=== PATIENT | female | born 1985 | race Caucasian/White ===

== ENCOUNTER 2022-11-24 13:45 | Outpatient (RCR) | payer OTHER, SELFPAY ==
--- NOTE | 2022-10-12 13:05 | PT.OIE ---
Current Diagnoses Stress incontinence (female) (male) (10/12/22) Functional urinary incontinence (10/12/22) Visit Care Team Role Provider Type Odette Morales ND Attending Provider Non-Staff Family Provider Primary Care Provider Referring Provider Specialty: Medical Address: [address] [place] [address], [id number] Email: Physical Therapy Initial Evaluation PT-OP-A Visit Information Start: 10/07/22 15:35 Freq: Status: Active Protocol: Document 10/12/22 08:18 AMB (Rec: 10/12/22 08:29 AMB [id number]) Out-Patient Physical Therapy Visit Information Visit Information Visit Type Initial Evaluation Visit Start Time 08:15 Visit Stop Time 09:00 Total Visit Minutes 45 Visit Number 1 PT-OP-B Current Condition Start: 10/07/22 15:35 Freq: Status: Active Protocol: Document 10/12/22 08:18 AMB (Rec: 10/12/22 08:29 AMB [id number]) Current Condition History of Current Condition Onset Date 2016 Current Complaints stress incontinence History of Current Condition '08, '09, '11, and then '17 did pelvic floor physical therapy after the last baby and did well, but symptoms have since returned. Leaking urine with running, jumping, lateral movements. Plays softball and has to play with a pad. All vaginal deliveries , last was fast and thinks had a 2nd degree tear, knows there were stitches. Prior Functional Status Baseline Function- ADL's Independent Baseline Function- Mobility Independent Current Functional Impairments (Reported) Functional Limitations- ADL's limited with exercise PT-OP-C Subjective Start: 10/07/22 15:35 Freq: Status: Active Protocol: Document 10/12/22 08:15 AMB (Rec: 10/15/22 12:46 AMB [id number]) Patient Questionnaires Pelvic Pain and Urgency/Frequency Patient Symptom Scale Pelvic Pain Score 1 PT-OP-I Pelvic Floor Start: 10/07/22 15:35 Freq: Status: Active Protocol: Document 10/12/22 08:54 AMB (Rec: 10/12/22 08:57 AMB [id number]) Pelvic Floor Assessment Urine Leakage Size Small Leakage Cause Exercise Voiding Frequency 8/day Nocturia 0 Urine Pad Type Maxi Pad Bowel Bowel Surgery No Pelvic Clock Pelvic Clock Other no palpable guarding during assessment Prolapse Cystocele Grade 2 Rectocele Grade 1 Perineal Descent Resting Absent Bearing Present SEMG (uV) Baseline 2 Quick Contraction 27 10 Second Contraction 19 Contraction Ability Voluntary Contraction Moderate Voluntary Relaxation Moderate Manual Muscle Testing Left 3 Manual Muscle Testing Right 3 Manual Muscle Testing Anterior 3 Manual Muscle Testing Posterior 4 Muscle Endurance (Seconds) 10 Number of Quick Contractions In 10 4 Seconds Comments Pelvic Floor Comments needs cues to avoid over use of TA PT-OP-T Assessment and Plan Start: 10/07/22 15:35 Freq: Status: Active Protocol: Document 10/12/22 08:15 AMB (Rec: 10/15/22 13:03 AMB [id number]) Physical Therapy Assessment Rehab Potential Rehabilitation Potential Good Evaluation Complexity Number of Personal Factors/Comorbidities 0 Number of Body Systems Impaired 1-2 Clinical Presentation at Evaluation Stable Impairments Impairments Activity Tolerance,Strength Goals Two Impairment HEP Short Term Goal (STG) Elvira will be consistent and independent with a pelvic floor strengthening exercise program. STG Duration 5 weeks Detention Goal (LTG) Elvira will contract her pelvic floor for 10 seconds while move from sit to stand to show an improvement in her pelvic floor strength. LTG Duration 10 weeks One Impairment Continence Short Term Goal (STG) Elvira will perform a lateral lunge without leaking. STG Duration 4 weeks Cane Weigher Goal (LTG) Elvira will sprint for softball without leaking. LTG Duration 10 weeks Assessment Summary Assessment Elvira attends physical therapy with a worsening of continence after previous pelvic floor physical therapy. Her biggest leaks occur while sprinting during softball. She had good strength with her pelvic floor with sEMG and manual assessment, but given her sporting goals will need to improve her strength even more . Physical Therapy Plan Frequency and Duration Frequency of Treatment 1x/Week Duration of treatment (weeks) 10 Plan of Care Start Date 10/12/22 Plan of Care End Date 12/21/22 Therapeutic Interventions Therapeutic Interventions Home Exercise Program,Manual Therapy,Neuromuscular Re- education,Self-Care/Home Management,Therapeutic Activities,Therapeutic Exercises Modalities Biofeedback,Cold Pack/Ice Massage,Electric Stimulation Next Visit Focus/Plan Next Note Type Treatment Note Next Visit Plan sEMG, exercise progression, work on more athletic exercises as that is what pt's biggest issue is
--- NOTE | 2022-10-12 13:05 | PT.OPPOC ---
Physical, Occupational & Speech Therapy At [facility] Current Diagnoses Stress incontinence (female) (male) (10/12/22) Functional urinary incontinence (10/12/22) Visit Care Team Role Provider Type Odette Morales ND Attending Provider Non-Staff Family Provider Primary Care Provider Referring Provider Specialty: Medical Address: [address] [place] [address], [id number] Email: Plan Of Care PT-OP-T Assessment and Plan Start: 10/07/22 15:35 Freq: Status: Active Protocol: Document 10/12/22 08:15 AMB (Rec: 10/15/22 13:03 AMB [id number]) Physical Therapy Assessment Rehab Potential Rehabilitation Potential Good Evaluation Complexity Number of Personal Factors/Comorbidities 0 Number of Body Systems Impaired 1-2 Clinical Presentation at Evaluation Stable Impairments Impairments Activity Tolerance,Strength Goals Two Impairment HEP Short Term Goal (STG) Elvira will be consistent and independent with a pelvic floor strengthening exercise program. STG Duration 5 weeks Emergency Detail Driver Goal (LTG) Elvira will contract her pelvic floor for 10 seconds while move from sit to stand to show an improvement in her pelvic floor strength. LTG Duration 10 weeks One Impairment Continence Short Term Goal (STG) Elvira will perform a lateral lunge without leaking. STG Duration 4 weeks Emergency Detail Driver Goal (LTG) Elvira will sprint for softball without leaking. LTG Duration 10 weeks Assessment Summary Assessment Elvira attends physical therapy with a worsening of continence after previous pelvic floor physical therapy. Her biggest leaks occur while sprinting during softball. She had good strength with her pelvic floor with sEMG and manual assessment, but given her sporting goals will need to improve her strength even more . Physical Therapy Plan Frequency and Duration Frequency of Treatment 1x/Week Duration of treatment (weeks) 10 Plan of Care Start Date 10/12/22 Plan of Care End Date 12/21/22 Therapeutic Interventions Therapeutic Interventions Home Exercise Program,Manual Therapy,Neuromuscular Re- education,Self-Care/Home Management,Therapeutic Activities,Therapeutic Exercises Modalities Biofeedback,Cold Pack/Ice Massage,Electric Stimulation Next Visit Focus/Plan Next Note Type Treatment Note Next Visit Plan sEMG, exercise progression, work on more athletic exercises as that is what pt's biggest issue is Plan of Care Dates Plan of Care Start Date 10/12/22 Plan of Care End Date 12/21/22 Electronically Signed by: Kailyn Heart, PT 10/15/22 2142 If you are in agreement with this Plan of Care, please return a signed and dated copy. I have reviewed this Plan of Care and certify that the skilled therapy services above are required to meet the patient?s needs. Physician Signature Date Printed Name and Credentials Clinical Instructor Signature Printed Name and Credentials
--- NOTE | 2022-10-23 14:25 | PT.OTN ---
Current Diagnoses Stress incontinence (female) (male) (10/23/22) Functional urinary incontinence (10/23/22) Physical Therapy Treatment Note PT-OP-A Visit Information Start: 10/07/22 15:35 Freq: Status: Active Protocol: Document 10/23/22 09:10 AMB (Rec: 10/23/22 09:47 AMB [id number]) Out-Patient Physical Therapy Visit Information Visit Information Visit Type Treatment Note Visit Start Time 09:10 Visit Stop Time 09:45 Total Visit Minutes 35 Visit Number 2 PT-OP-B Current Condition Start: 10/07/22 15:35 Freq: Status: Active Protocol: Document 10/12/22 08:18 AMB (Rec: 10/12/22 08:29 AMB [id number]) Current Condition History of Current Condition Onset Date 2016 Current Complaints stress incontinence History of Current Condition '08, ', ', and then '17 did pelvic floor physical therapy after the last baby and did well, but symptoms have since returned. Leaking urine with running, jumping, lateral movements. Plays softball and has to play with a pad. All vaginal deliveries , last was fast and thinks had a 2nd degree tear, knows there were stitches. Prior Functional Status Baseline Function- ADL's Independent Baseline Function- Mobility Independent Current Functional Impairments (Reported) Functional Limitations- ADL's limited with exercise PT-OP-C Subjective Start: 10/07/22 15:35 Freq: Status: Active Protocol: Document 10/23/22 09:10 AMB (Rec: 10/23/22 09:47 AMB [id number]) OP-PT Subjective Patient Comments Patient Comments Elvira is noticing some difficulty with coughing especially if bladder is especially full. Still noticing more issues with jumping and sprinting. PT-OP-I Pelvic Floor Start: 10/07/22 15:35 Freq: Status: Active Protocol: Document 10/12/22 08:54 AMB (Rec: 10/12/22 08:57 AMB [id number]) Pelvic Floor Assessment Urine Leakage Size Small Leakage Cause Exercise Voiding Frequency 8/day Nocturia 0 Urine Pad Type Maxi Pad Bowel Bowel Surgery No Pelvic Clock Pelvic Clock Other no palpable guarding during assessment Prolapse Cystocele Grade 2 Rectocele Grade 1 Perineal Descent Resting Absent Bearing Present SEMG (uV) Baseline 2 Quick Contraction 27 10 Second Contraction 19 Contraction Ability Voluntary Contraction Moderate Voluntary Relaxation Moderate Manual Muscle Testing Left 3 Manual Muscle Testing Right 3 Manual Muscle Testing Anterior 3 Manual Muscle Testing Posterior 4 Muscle Endurance (Seconds) 10 Number of Quick Contractions In 10 4 Seconds Comments Pelvic Floor Comments needs cues to avoid over use of TA PT-OP-Q Treatments Start: 10/07/22 15:35 Freq: Status: Active Protocol: Document 10/23/22 09:10 AMB (Rec: 10/23/22 09:47 AMB [id number]) Gym Equipment Shuttle Recovery plyos Resistance 25 Reps/Time 2x5 Therapeutic Exercises Sitting Exercises roll out Sitting Exercise Name #3 t band Reps/Minutes 2x10 roll in Reps/Minutes 2x10 Standing Exercises WBOS Reps/Minutes 2x10 Comments cued lift, gentle descent mini lunge Reps/Minutes 2x10 Comments challenging PT-OP-T Assessment and Plan Start: 10/07/22 15:35 Freq: Status: Active Protocol: Document 10/23/22 09:10 AMB (Rec: 10/23/22 09:47 AMB [id number]) Physical Therapy Assessment Goals Two Impairment HEP Short Term Goal (STG) Elvira will be consistent and independent with a pelvic floor strengthening exercise program. STG Duration 5 weeks Senior Living Goal (LTG) Elvira will contract her pelvic floor for 10 seconds while move from sit to stand to show an improvement in her pelvic floor strength. LTG Duration 10 weeks One Impairment Continence Short Term Goal (STG) Elvira will perform a lateral lunge without leaking. STG Duration 4 weeks Correctional Food Service Supervisor Goal (LTG) Elvira will sprint for softball without leaking. LTG Duration 10 weeks Assessment Summary Assessment Elvira was challenged by controlling pelvic floor in standing, especially with movement, given HEP of roll in roll out and sit to stand. Physical Therapy Plan Frequency and Duration Frequency of Treatment 1x/Week Duration of treatment (weeks) 10 Plan of Care Start Date 10/12/22 Plan of Care End Date 12/21/22 Therapeutic Interventions Therapeutic Interventions Home Exercise Program,Manual Therapy,Neuromuscular Re- education,Self-Care/Home Management,Therapeutic Activities,Therapeutic Exercises Modalities Biofeedback,Cold Pack/Ice Massage,Electric Stimulation Next Visit Focus/Plan Next Note Type Treatment Note Next Visit Plan sEMG, exercise progression, work on more athletic exercises as that is what pt's biggest issue is
--- NOTE | 2022-11-03 16:00 | PT.OTN ---
Current Diagnoses Stress incontinence (female) (male) (11/03/22) Functional urinary incontinence (11/03/22) Physical Therapy Treatment Note PT-OP-A Visit Information Start: 10/07/22 15:35 Freq: Status: Active Protocol: Document 11/03/22 13:45 AMB (Rec: 11/03/22 14:30 AMB [id number]) Out-Patient Physical Therapy Visit Information Visit Information Visit Type Treatment Note Visit Start Time 13:45 Visit Stop Time 14:30 Total Visit Minutes 45 Visit Number 3 PT-OP-B Current Condition Start: 10/07/22 15:35 Freq: Status: Active Protocol: Document 10/12/22 08:18 AMB (Rec: 10/12/22 08:29 AMB [id number]) Current Condition History of Current Condition Onset Date 2016 Current Complaints stress incontinence History of Current Condition '08, '09, ', and then '17 did pelvic floor physical therapy after the last baby and did well, but symptoms have since returned. Leaking urine with running, jumping, lateral movements. Plays softball and has to play with a pad. All vaginal deliveries , last was fast and thinks had a 2nd degree tear, knows there were stitches. Prior Functional Status Baseline Function- ADL's Independent Baseline Function- Mobility Independent Current Functional Impairments (Reported) Functional Limitations- ADL's limited with exercise PT-OP-C Subjective Start: 10/07/22 15:35 Freq: Status: Active Protocol: Document 11/03/22 13:45 AMB (Rec: 11/03/22 15:47 AMB [id number]) OP-PT Subjective Patient Comments Patient Comments Pt is feeling like exercises are going well, but was tough to do them over holiday. PT-OP-I Pelvic Floor Start: 10/07/22 15:35 Freq: Status: Active Protocol: Document 10/12/22 08:54 AMB (Rec: 10/12/22 08:57 AMB [id number]) Pelvic Floor Assessment Urine Leakage Size Small Leakage Cause Exercise Voiding Frequency 8/day Nocturia 0 Urine Pad Type Maxi Pad Bowel Bowel Surgery No Pelvic Clock Pelvic Clock Other no palpable guarding during assessment Prolapse Cystocele Grade 2 Rectocele Grade 1 Perineal Descent Resting Absent Bearing Present SEMG (uV) Baseline 2 Quick Contraction 27 10 Second Contraction 19 Contraction Ability Voluntary Contraction Moderate Voluntary Relaxation Moderate Manual Muscle Testing Left 3 Manual Muscle Testing Right 3 Manual Muscle Testing Anterior 3 Manual Muscle Testing Posterior 4 Muscle Endurance (Seconds) 10 Number of Quick Contractions In 10 4 Seconds Comments Pelvic Floor Comments needs cues to avoid over use of TA PT-OP-Q Treatments Start: 10/07/22 15:35 Freq: Status: Active Protocol: Document 11/03/22 13:45 AMB (Rec: 11/03/22 14:30 AMB [id number]) Therapeutic Exercises Sitting Exercises roll out Sitting Exercise Name #3 t band Reps/Minutes 2x10 roll in Reps/Minutes 2x10 Standing Exercises mini squat and lift Standing Exercise Name lifting 10# crate Comments from waist height to chest height with pelvic floor activation WBOS Reps/Minutes 2x10 Comments cued lift, gentle descent mini lunge Standing Exercise Name lateral lunge Reps/Minutes 2x10 Comments with PF, cued breathing PT-OP-T Assessment and Plan Start: 10/07/22 15:35 Freq: Status: Active Protocol: Document 11/03/22 13:45 AMB (Rec: 11/03/22 14:30 AMB [id number]) Physical Therapy Assessment Goals Two Impairment HEP Short Term Goal (STG) Elvira will be consistent and independent with a pelvic floor strengthening exercise program. STG Duration 5 weeks Snf Goal (LTG) Elvira will contract her pelvic floor for 10 seconds while move from sit to stand to show an improvement in her pelvic floor strength. LTG Duration 10 weeks One Impairment Continence Short Term Goal (STG) Elvira will perform a lateral lunge without leaking. STG Duration [address] Sql Programmer Goal (LTG) Elvira will sprint for softball without leaking. LTG Duration 10 weeks Assessment Summary Assessment Pt is progressing with exercises well, would like to revisit with sensor to make sure she is appropriately using pelvic floor muscles. Challenged by more functional exercises. Physical Therapy Plan Frequency and Duration Frequency of Treatment 1x/Week Duration of treatment (weeks) 10 Plan of Care Start Date 10/12/22 Plan of Care End Date 12/21/22 Therapeutic Interventions Therapeutic Interventions Home Exercise Program,Manual Therapy,Neuromuscular Re- education,Self-Care/Home Management,Therapeutic Activities,Therapeutic Exercises Modalities Biofeedback,Cold Pack/Ice Massage,Electric Stimulation Next Visit Focus/Plan Next Note Type Treatment Note Next Visit Plan sEMG, exercise progression, work on more athletic exercises as that is what pt's biggest issue is
--- NOTE | 2022-11-17 15:59 | PT.OTN ---
Current Diagnoses Stress incontinence (female) (male) (11/17/22) Functional urinary incontinence (11/17/22) Physical Therapy Treatment Note PT-OP-A Visit Information Start: 10/07/22 15:35 Freq: Status: Active Protocol: Document 11/17/22 13:50 AMB (Rec: 11/17/22 14:25 AMB [id number]) Out-Patient Physical Therapy Visit Information Visit Information Visit Type Treatment Note Visit Start Time 13:45 Visit Stop Time 14:30 Total Visit Minutes 45 Visit Number 4 PT-OP-B Current Condition Start: 10/07/22 15:35 Freq: Status: Active Protocol: Document 10/12/22 08:18 AMB (Rec: 10/12/22 08:29 AMB [id number]) Current Condition History of Current Condition Onset Date 2016 Current Complaints stress incontinence History of Current Condition '08, ', ', and then 17 did pelvic floor physical therapy after the last baby and did well, but symptoms have since returned. Leaking urine with running, jumping, lateral movements. Plays softball and has to play with a pad. All vaginal deliveries , last was fast and thinks had a 2nd degree tear, knows there were stitches. Prior Functional Status Baseline Function- ADL's Independent Baseline Function- Mobility Independent Current Functional Impairments (Reported) Functional Limitations- ADL's limited with exercise PT-OP-C Subjective Start: 10/07/22 15:35 Freq: Status: Active Protocol: Document 11/17/22 13:50 AMB (Rec: 11/17/22 14:25 AMB [id number]) OP-PT Subjective Patient Comments Patient Comments Pt is feeling better PT-OP-I Pelvic Floor Start: 10/07/22 15:35 Freq: Status: Active Protocol: Document 10/12/22 08:54 AMB (Rec: 10/12/22 08:57 AMB [id number]) Pelvic Floor Assessment Urine Leakage Size Small Leakage Cause Exercise Voiding Frequency 8/day Nocturia 0 Urine Pad Type Maxi Pad Bowel Bowel Surgery No Pelvic Clock Pelvic Clock Other no palpable guarding during assessment Prolapse Cystocele Grade 2 Rectocele Grade 1 Perineal Descent Resting Absent Bearing Present SEMG (uV) Baseline 2 Quick Contraction 27 10 Second Contraction 19 Contraction Ability Voluntary Contraction Moderate Voluntary Relaxation Moderate Manual Muscle Testing Left 3 Manual Muscle Testing Right 3 Manual Muscle Testing Anterior 3 Manual Muscle Testing Posterior 4 Muscle Endurance (Seconds) 10 Number of Quick Contractions In 10 4 Seconds Comments Pelvic Floor Comments needs cues to avoid over use of TA PT-OP-Q Treatments Start: 10/07/22 15:35 Freq: Status: Active Protocol: Document 11/17/22 13:50 AMB (Rec: 11/17/22 14:25 AMB [id number]) Gym Equipment Shuttle Recovery plyos Resistance 25 Reps/Time 2x5 Shuttle Rebound 1 Exercise Details mini heel lift/jump Reps/Duration 10 Therapeutic Exercises Standing Exercises mini squat and lift Standing Exercise Name lifting 10# crate Comments from waist height to chest height with pelvic floor activation mini lunge Standing Exercise Name lateral lunge Reps/Minutes 2x10 Comments with PF, cued breathing PT-OP-T Assessment and Plan Start: 10/07/22 15:35 Freq: Status: Active Protocol: Document 11/17/22 13:50 AMB (Rec: 11/17/22 14:25 AMB [id number]) Physical Therapy Assessment Goals Two Impairment HEP Short Term Goal (STG) Elvira will be consistent and independent with a pelvic floor strengthening exercise program. STG Duration 5 weeks Mcc Goal (LTG) Elvira will contract her pelvic floor for 10 seconds while move from sit to stand to show an improvement in her pelvic floor strength. LTG Duration 10 weeks One Impairment Continence Short Term Goal (STG) Elvira will perform a lateral lunge without leaking. STG Duration 4 weeks Poultry Picker Goal (LTG) Elvira will sprint for softball without leaking. LTG Duration 10 weeks Assessment Summary Assessment Pt was challenged by mini trampoline, did well with lifting and heel raise and down to start working on running progression. Physical Therapy Plan Frequency and Duration Frequency of Treatment 1x/Week Duration of treatment (weeks) 10 Plan of Care Start Date 10/12/22 Plan of Care End Date 12/21/22 Therapeutic Interventions Therapeutic Interventions Home Exercise Program,Manual Therapy,Neuromuscular Re- education,Self-Care/Home Management,Therapeutic Activities,Therapeutic Exercises Modalities Biofeedback,Cold Pack/Ice Massage,Electric Stimulation Next Visit Focus/Plan Next Note Type Treatment Note Next Visit Plan Running progression- glute activation
--- NOTE | 2022-11-24 15:11 | PT.OTN ---
Current Diagnoses Stress incontinence (female) (male) (11/24/22) Functional urinary incontinence (11/24/22) Physical Therapy Treatment Note PT-OP-A Visit Information Start: 10/07/22 15:35 Freq: Status: Active Protocol: Document 11/24/22 13:49 AMB (Rec: 11/24/22 14:25 AMB [id number]) Out-Patient Physical Therapy Visit Information Visit Information Visit Type Treatment Note Visit Start Time 13:45 Visit Stop Time 14:30 Total Visit Minutes 45 Visit Number 5 PT-OP-B Current Condition Start: 10/07/22 15:35 Freq: Status: Active Protocol: Document 10/12/22 08:18 AMB (Rec: 10/12/22 08:29 AMB [id number]) Current Condition History of Current Condition Onset Date 2016 Current Complaints stress incontinence History of Current Condition '08, ', ', and then did pelvic floor physical therapy after the last baby and did well, but symptoms have since returned. Leaking urine with running, jumping, lateral movements. Plays softball and has to play with a pad. All vaginal deliveries , last was fast and thinks had a 2nd degree tear, knows there were stitches. Prior Functional Status Baseline Function- ADL's Independent Baseline Function- Mobility Independent Current Functional Impairments (Reported) Functional Limitations- ADL's limited with exercise PT-OP-C Subjective Start: 10/07/22 15:35 Freq: Status: Active Protocol: Document 11/24/22 13:49 AMB (Rec: 11/24/22 14:25 AMB [id number]) OP-PT Subjective Patient Comments Patient Comments No leaking on run today, but felt like running down hill. PT-OP-I Pelvic Floor Start: 10/07/22 15:35 Freq: Status: Active Protocol: Document 10/12/22 08:54 AMB (Rec: 10/12/22 08:57 AMB [id number]) Pelvic Floor Assessment Urine Leakage Size Small Leakage Cause Exercise Voiding Frequency 8/day Nocturia 0 Urine Pad Type Maxi Pad Bowel Bowel Surgery No Pelvic Clock Pelvic Clock Other no palpable guarding during assessment Prolapse Cystocele Grade 2 Rectocele Grade 1 Perineal Descent Resting Absent Bearing Present SEMG (uV) Baseline 2 Quick Contraction 27 10 Second Contraction 19 Contraction Ability Voluntary Contraction Moderate Voluntary Relaxation Moderate Manual Muscle Testing Left 3 Manual Muscle Testing Right 3 Manual Muscle Testing Anterior 3 Manual Muscle Testing Posterior 4 Muscle Endurance (Seconds) 10 Number of Quick Contractions In 10 4 Seconds Comments Pelvic Floor Comments needs cues to avoid over use of TA PT-OP-Q Treatments Start: 10/07/22 15:35 Freq: Status: Active Protocol: Document 11/24/22 13:49 AMB (Rec: 11/24/22 14:25 AMB [id number]) Gym Equipment Shuttle Recovery plyos Resistance 25 Reps/Time 2x5 Shuttle Rebound 1 Exercise Details mini heel lift/jump Reps/Duration 10x2 Therapeutic Exercises Standing Exercises jump squat Reps/Minutes 10 little hops stationary Standing Exercise Name feet together Reps/Minutes [address] Standing Exercise Name single leg #4 band Comments with cues for breath and pelvic floor. mini lunge Standing Exercise Name lateral lunge Reps/Minutes 2x10 Comments with PF, cued breathing PT-OP-T Assessment and Plan Start: 10/07/22 15:35 Freq: Status: Active Protocol: Document 11/24/22 13:49 AMB (Rec: 11/24/22 14:25 AMB [id number]) Physical Therapy Assessment Goals Two Impairment HEP Short Term Goal (STG) Elvira will be consistent and independent with a pelvic floor strengthening exercise program. STG Duration 5 weeks Assisted Goal (LTG) Elvira will contract her pelvic floor for 10 seconds while move from sit to stand to show an improvement in her pelvic floor strength. LTG Duration 10 weeks One Impairment Continence Short Term Goal (STG) Elvira will perform a lateral lunge without leaking. STG Duration 4 weeks Post Partum Nurse Goal (LTG) Elvira will sprint for softball without leaking. LTG Duration 10 weeks Assessment Summary Assessment Elvira continues to have a feeling that she could leak with higher level activities including running, progressed exercises today to work more on plyometrics and return to running. Encouraged pt to start to work on plyometrics with legs together, like jump rope or gentle squat jump as opposed to jumping jacks or cross country plyos. Physical Therapy Plan Frequency and Duration Frequency of Treatment 1x/Week Duration of treatment (weeks) 10 Plan of Care Start Date 10/12/22 Plan of Care End Date 12/21/22 Therapeutic Interventions Therapeutic Interventions Home Exercise Program,Manual Therapy,Neuromuscular Re- education,Self-Care/Home Management,Therapeutic Activities,Therapeutic Exercises Modalities Biofeedback,Cold Pack/Ice Massage,Electric Stimulation Next Visit Focus/Plan Next Note Type Treatment Note Next Visit Plan Running progression- glute activation
--- NOTE | 2022-12-01 13:23 | PT-OP ANOTE ---
No show: pt had wrong time, thought her appt was at 1:45, not at 1:00pm.
--- NOTE | 2023-01-01 07:58 | PT-OP ANOTE ---
Pt states she canceled via televox.
--- NOTE | 2023-01-01 08:08 | PT.OPDS ---
Current Diagnoses Stress incontinence (female) (male) (11/24/22) Functional urinary incontinence (11/24/22) Visit Care Team Role Provider Type Odette Morales ND Attending Provider Non-Staff Family Provider Primary Care Provider Referring Provider Specialty: Medical Address: [address] [place] [address], [id number] Email: Visit Number Visit Number 5 Discharge Summary PT-OP-B Current Condition Start: 10/07/22 15:35 Freq: Status: Active Protocol: Document 10/12/22 08:18 AMB (Rec: 10/12/22 08:29 AMB [id number]) Current Condition History of Current Condition Onset Date 2016 Current Complaints stress incontinence History of Current Condition , ', , and then did pelvic floor physical therapy after the last baby and did well, but symptoms have since returned. Leaking urine with running, jumping, lateral movements. Plays softball and has to play with a pad. All vaginal deliveries , last was fast and thinks had a 2nd degree tear, knows there were stitches. Prior Functional Status Baseline Function- ADL's Independent Baseline Function- Mobility Independent Current Functional Impairments (Reported) Functional Limitations- ADL's limited with exercise PT-OP-C Subjective Start: 10/07/22 15:35 Freq: Status: Active Protocol: Document 11/24/22 13:49 AMB (Rec: 11/24/22 14:25 AMB [id number]) OP-PT Subjective Patient Comments Patient Comments No leaking on run today, but felt like running down hill. PT-OP-I Pelvic Floor Start: 10/07/22 15:35 Freq: Status: Active Protocol: Document 10/12/22 08:54 AMB (Rec: 10/12/22 08:57 AMB [id number]) Pelvic Floor Assessment Urine Leakage Size Small Leakage Cause Exercise Voiding Frequency 8/day Nocturia 0 Urine Pad Type Maxi Pad Bowel Bowel Surgery No Pelvic Clock Pelvic Clock Other no palpable guarding during assessment Prolapse Cystocele Grade 2 Rectocele Grade 1 Perineal Descent Resting Absent Bearing Present SEMG (uV) Baseline 2 Quick Contraction 27 10 Second Contraction 19 Contraction Ability Voluntary Contraction Moderate Voluntary Relaxation Moderate Manual Muscle Testing Left 3 Manual Muscle Testing Right 3 Manual Muscle Testing Anterior 3 Manual Muscle Testing Posterior 4 Muscle Endurance (Seconds) 10 Number of Quick Contractions In 10 4 Seconds Comments Pelvic Floor Comments needs cues to avoid over use of TA PT-OP-T Assessment and Plan Start: 10/07/22 15:35 Freq: Status: Active Protocol: Document 01/01/23 07:58 AMB (Rec: 01/01/23 08:08 AMB [id number]) Physical Therapy Assessment Goals Two Impairment HEP Short Term Goal (STG) Elvira will be consistent and independent with a pelvic floor strengthening exercise program. STG Duration MET Sas Analyst Goal (LTG) Elvira will contract her pelvic floor for 10 seconds while move from sit to stand to show an improvement in her pelvic floor strength. LTG Duration MET One Impairment Continence Short Term Goal (STG) Elvira will perform a lateral lunge without leaking. STG Duration MET Sas Analyst Goal (LTG) Elvira will sprint for softball without leaking. LTG Duration NOT MET Assessment Summary Assessment Pt had to cancel remaining appointments due to insurance issues. Had shown some improvement but was still unable to sprint at last visit . Physical Therapy Plan Discharge Physical Therapy Discharge Reasons No Longer Attending PT
== END 2023-01-04 11:54 | disposition home or self-care (01) ==
LOC: PHYS 13:45
PROVIDERS: Family Provider Naturopath; PCP Naturopath; Referring Provider Naturopath; Visit Provider Naturopath
DX: N39.3 Stress incontinence (female) (male) (principal)
CPT/HCPCS: 97110; 97161